=== PATIENT | female | born 1975 | race Caucasian/White ===

== ENCOUNTER 2019-01-29 22:52 | Emergency (ER) | payer SELFPAY, OTHER ==
[2019-01-30 01:48] LABS: ADD MAN DIFF? NO
[2019-01-30 01:49] LABS: BASOPHIL # 0.1 10^3/ul (0.0-0.1); BASOPHILS % 0.7 % (0.0-2.0); EOSINOPHILS # 0.2 10^3/ul (0.0-0.5); EOSINOPHILS % 2.7 % (0.0-7.0); HEMATOCRIT 36.7 % (37.0-47.0); HEMOGLOBIN 11.4 g/dl (12.0-16.0); LYMPHOCYTES # 3.1 10^3/ul (0.8-2.9); LYMPHOCYTES % 43.3 % (15.0-51.0); MEAN CORPUSCULAR HEMOGLOBIN 25.3 pg (29.0-33.0); MEAN CORPUSCULAR HGB CONC 31.1 g/dl (32.0-37.0); MEAN CORPUSCULAR VOLUME 81.6 fl (82.0-101.0); MONOCYTE # 0.6 10^3/ul (0.3-0.9); MONOCYTES % 9.1 % (0.0-11.0); NEUTROPHIL # 3.1 10^3/ul (1.6-7.5); NEUTROPHILS % 44.1 % (39.0-77.0); PLATELET COUNT 338 10^3/UL (140-415); RED CELL DISTRIBUTION WIDTH 14.4 % (11.5-14.5)
[2019-01-30 02:10] LABS: INR 0.87; PROTIME 11.9 Sec (11.9-14.9); PT RATIO 0.9
[2019-01-30 02:11] LABS: PARTIAL THROMBOPLASTIN TIME 25.6 Sec (23.0-35.0)
[2019-01-30 02:12] LABS: ALANINE AMINOTRANSFERASE 20 IU/L (13-69); ALBUMIN 3.9 g/dl (3.3-4.9); ALBUMIN/GLOBULIN RATIO 1.05; ALKALINE PHOSPHATASE 65 IU/L (42-121); ANION GAP 7 (5-13); ASPARTATE AMINO TRANSFERASE 22 IU/L (15-46); BILIRUBIN,INDIRECT 0.6 mg/dl (0-1.1); BILIRUBIN,TOTAL 0.6 mg/dl (0.2-1.3); BLOOD UREA NITROGEN 15 mg/dl (7-20); CALCIUM 9.1 mg/dl (8.4-10.2); CARBON DIOXIDE 28 mmol/L (21-31); CHLORIDE 103 mmol/L (97-110); CREATININE 0.88 mg/dl (0.44-1.00); Estimated GFR > 60 mL/min (>60); GLUCOSE 101 mg/dl (70-220); POTASSIUM 4.1 mmol/L (3.5-5.1); SODIUM 138 mmol/L (135-144); TOTAL PROTEIN 7.6 g/dl (6.1-8.1)
[2019-01-30] MEDS: ACYCLOVIR 800 MG TAB PO (02:13)
[2019-01-30 02:22] LABS: TROPONIN-I < 0.012 ng/ml (0.000-0.120)
[2019-01-30 02:42] LABS: ADD UMIC YES; UR ASCORBIC ACID NEGATIVE (NEGATIVE); UR BACTERIA FEW /HPF (NONE SEEN); UR BILIRUBIN (Dip) NEGATIVE (NEGATIVE); UR BLOOD (Dip) NEGATIVE (NEGATIVE); UR CLARITY SLIGHTLY CLOUDY (CLEAR); UR COLOR AMBER (YELLOW); UR GLUCOSE (Dip) NEGATIVE (NEGATIVE); UR KETONES (Dip) NEGATIVE (NEGATIVE); UR LEUKOCYTE ESTERASE (Dip) NEGATIVE Leu/ul (NEGATIVE); UR MUCUS MODERATE /HPF (NONE SEEN); UR NITRITE (Dip) POSITIVE (NEGATIVE); UR RBC 3 /HPF (0-5); UR SPECIFIC GRAVITY (Dip) 1.027 (1.003-1.030); UR SQUAMOUS EPITHELIAL CELL MODERATE /HPF (FEW); UR TOTAL PROTEIN (Dip) NEGATIVE (NEGATIVE); UR UROBILINOGEN (Dip) 2+ mg/dL (NEGATIVE); UR WBC 35 /HPF (0-5)
[2019-01-30] MEDS: predniSONE 20 MG TAB PO (03:41)
== END 2019-01-30 03:56 | disposition home or self-care (01) ==
LOC: FTE 22:52
DX: G51.0 Bell's palsy (principal); D32.9 Benign neoplasm of meninges, unspecified; R07.89 Other chest pain
CPT/HCPCS: 70450; 71046; 80053; 81001; 81025; 84484; 85025; 85610; 85730; 93005; 99285-25